=== PATIENT | male | born 1980 | race Caucasian/White ===

== ENCOUNTER 2017-12-24 09:58 | Emergency (ER) | payer SELFPAY ==
[~2017-12-24] VITALS: Ht 180.3 cm; Wt 120.2 kg
[~2017-12-24 09:58] MED LIST: AMOX500 PO; DEXL60CA3 PO; NAPR500 PO; OMEP40CA12 PO; OTC MEDS; OXYACE5T PO; OXYCONTIN; PENVK500 PO
[2017-12-24] MEDS ORDERED: Omeprazole20 M1 PO (10:31)
[2017-12-24] MEDS ORDERED: CEPH500 PO (10:54)
[2017-12-24] MEDS ORDERED: Bactrim Ds Tab1 EACH PO (10:54)
[2017-12-24] MEDS ORDERED: Mupirocin22 GM TOP (10:54)
== END 2017-12-24 11:02 | disposition home or self-care (01) ==
LOC: ER 09:58
DX: K13.0 Diseases of lips (principal); J34.0 Abscess, furuncle and carbuncle of nose; H60.11 Cellulitis of right external ear; N39.0 Urinary tract infection, site not specified; F17.210 Nicotine dependence, cigarettes, uncomplicated; Z79.899 Other long term (current) drug therapy; B95.62 Methicillin resistant Staphylococcus aureus infection as the cause of diseases classified elsewhere
CPT/HCPCS: 36415; 99283